=== PATIENT | male | born 1955 | race Caucasian/White ===

== ENCOUNTER 2017-07-21 11:54 | Observation (INO) ==
[2017-07-21] MEDS ORDERED: Naloxone 0.4 MG/ML INJ IVP PRN (15:13)
--- NOTE | 2017-07-21 15:27 | Internal Med History&Physical ---
Date of Encounter: 07/21/17 Time of Encounter: 15:13 Internal Medicine - H&P: HPI Admitted From: Hospital to Hospital Transfer Plans for Post Hospital Care: Home History of present illness: Mr. Gaines is a 61 year old male with history of diabetes mellitus, hypertension, COPD, hyperlipidemia, SANTOS on CPAP, fatty liver, remote a smoker one pack per day 30 years quit in 1994 was transferred to a [facility] from [facility] for cardiac evaluation and cardia consultation. Patient had almost continuous palpitation for last 3-4 days on exertion and on even while sitting and resting in the recliner. The only time palpitation was not felt by the patient when he is lying down sleeping and using his BiPAP. Palpitation associated with mild shortness of breath and some chest discomfort. He had same episode last year and got a stress test done with negative findings. He was brought to [facility] ER today where initial troponin negative and no acute ST-T wave finding in the EKG but had transient run of A. fib on telemetry. Patient denies fever, chills, nausea, vomiting, chest pain, shortness of breath , headache, dizziness, abdominal pain, urinary or bowel complaint at this time. Past Med Surg Social Fam HX - Past Medical History Medical history: asthma, COPD, diabetes, GERD, hyperlipidemia, hypertension, other Psychiatric history: no psych history - Past Surgical History Surgical History: non-contributory - Social History Smoking Status: Never smoker Smokeless Tobacco Status: No Alcohol use: none Drug use: none Internal Medicine - H&P: Meds Aspirin [Adult Low Dose Aspirin EC] 81 mg PO DAILY 06/04/15 [History] Lisinopril [Zestril] 40 mg PO DAILY 06/04/15 [History] Magnesium Oxide [Magnesium] 400 mg PO DAILY 06/04/15 [History] Metoprolol [Lopressor] 25 mg PO DAILY 06/04/15 [History] Montelukast [Singulair] 10 mg PO DAILY 06/04/15 [History] [place]-3/Dha/Epa/Fish Oil [Fish Oil Dr 500 mg Softgel] 1,000 mg PO DAILY [History] Omeprazole [PriLOSEC] 40 mg PO DAILY 06/04/15 [History] Potassium Chloride [K-Tab ER] 10 meq PO BID 06/04/15 [History] Simethicone [Gas-X] 80 mg PO TID 06/04/15 [History] Tizanidine HCl [Zanaflex] 2 mg PO TID PRN 06/04/15 [History] Zolpidem [Ambien] 10 mg PO HS 06/04/15 [History] metFORMIN [Glucophage] 500 mg PO BIDWM 06/04/15 [History] Albuterol Sulfate [Ventolin Hfa] 2 puff IH Q6H PRN 05/09/16 [History] Bupropion HCl [Wellbutrin Xl] 300 mg PO DAILY 05/09/16 [History] Butalbital/Aspirin/Caffeine [Fiorinal 50-325-40 mg Capsule] 1 each PO Q6H PRN [History] Cholecalciferol (Vitamin D3) [Vitamin D3] 2,000 unit PO DAILY 09/07/16 [History] Gemfibrozil [Lopid] 600 mg PO BIDWM 09/07/16 [History] Mometasone/Formoterol [Dulera 200 Mcg/5 Mcg Inhaler] 2 puff IH BID 09/07/16 [ History] Oxygen 1 each .ROUTE AD 09/07/16 [History] Albuterol Sulfate [Albuterol Inhaler] 2 puff IH Q6H #1 puff 11/20/16 [Rx] hydroCHLOROthiazide [Hydrochlorothiazide] 25 mg PO DAILY 11/20/16 [History] Lactobacillus [Culturelle] 1 each PO BID #10 cap.sprink 11/22/16 [Rx] Meloxicam [Mobic] 15 mg PO DAILY PRN #0 11/22/16 [Rx] Albuterol Sulfate [Albuterol Inhaler] 2 puff IH QID #1 inhaler 03/26/17 [Rx] Benzonatate [Tessalon] 200 mg PO TID PRN #20 capsule 03/26/17 [Rx] Albuterol Sulfate [Albuterol Inhaler] 2 puff IH Q4H PRN #1 puff 03/31/17 [Rx] predniSONE [PredniSONE] 60 mg PO DAILY #5 tablet 03/31/17 [Rx] OxyCODONE/APAP 10/325 [Percocet 10/325 MG] 1 each PO Q6HR PRN 07/21/17 [History] 3 Allergy/AdvReac Type Severity Reaction Status Date / Time No Known Allergies Allergy Verified 03/26/17 14:38 All Systems PM: A 10-system review of systems was performed and is negative for pertinent findings except as documented above in the HPI. - Constitutional Exam: General appearance: No acute distress, A&O X 3, morbidly obese. Family at bedside Head exam: Atraumatic Eye exam: EOMI, PERRLA ENT exam: Moist oral mucosa. A small oral cavity Neck nontender, supple Respiratory exam: Clear to auscultation bilaterally Cardiovascular exam: Regular rate and rhythm, no systolic murmur Abdominal exam: Soft, nontender, nondistended, positive bowel sounds Extremities exam: No calf tenderness, no pedal edema Present: Skin-no rash, warm, dry, intact Neurological exam: Alert, awake, oriented 3, CN II-XII intact, no focal deficits. No facial droop. Normal speech. - Assessment and plan (1) Palpitation Current Visit: Yes Status: Acute Assessment and plan: Active. Persistent for 3-4 days. No active chest pain. Patient also had associated shortness of breath that could be more likely due to palpitation but will also order BNP and d-dimer. Patient need cardiac workup therefore serial cardiac enzyme, echocardiogram and consulted cardiology talk to Dr. Gonzales. Telemetry, pulse oximetry. TSH. Nonalcoholic, remote smoker. (2) Diabetes mellitus Current Visit: Yes Status: Acute Assessment and plan: Accu-Chek, sliding scale insulin, diabetic diet. Qualifiers: Diabetes mellitus type: type 2 Diabetes mellitus skilled nursing insulin use: without credentials specialist use Diabetes mellitus complication status: without complication Qualified Code(s): E11.9 - Type 2 diabetes mellitus without complications (3) Hypertension Current Visit: Yes Status: Acute Assessment and plan: Monitor, continue home medicine. Qualifiers: Hypertension type: essential hypertension Qualified Code(s): I10 - Essential (primary) hypertension (4) SANTOS on CPAP Current Visit: Yes Status: Acute Assessment and plan: Continue home CPAP (5) DVT prophylaxis Current Visit: Yes Status: Acute Assessment and plan: SCDs - Time Spent With Patient Total time spent is greater than 50% in coordination of care (as documented) at patient's floor/unit and/or counseling patient: 25 - 35 minutes
[2017-07-21] MEDS ORDERED: Dextrose Gel 15 GM/37.5 ML TUBE PO PRN ×2 (15:34)
[2017-07-21] MEDS ORDERED: D5% in Water 1,000 ML IVC PRN (15:34)
[2017-07-21] MEDS ORDERED: *HR* Dextrose 50 % in Water (Syg) 50 ML SYRINGE IVP PRN (15:34)
[2017-07-21 15:42] LABS: Basophils % 0.6 %; Eosinophils # 0.1 K/mcL (0.0-0.6); Eosinophils % 1.8 %; Hematocrit 41.2 % (37.5-50.1); Hemoglobin 14.4 g/dL (12.9-16.9); Immature Granulocytes % 0.4 % (0-4); Lymphocytes # 2.2 K/mcL (0.6-4.6); Lymphocytes % 30.6 %; Mean Corpuscular Hemoglobin 31.3 pg (28.0-33.3); Mean Corpuscular Volume 89.6 fL (83.0-100.0); Mean Platelet Volume 10.4 fL (9.4-12.4); Monocytes # 0.7 K/mcL (0.0-1.3); Monocytes % 9.2 %; Neutrophils # 4.1 K/mcL (1.6-8.9); Platelet Count 300 K/mcL (140-400); Red Cell Distribution Width 11.9 % (11.5-14.5); Segmented Neutrophils % 57.4 %
[2017-07-21 15:48] LABS: INR 1.1; Prothrombin Time 11.6 Seconds (9.4-12.1)
[2017-07-21 15:51] LABS: Activated Partial Thrombo Time 29.9 Seconds (26.0-36.0)
[2017-07-21 16:02] LABS: Alanine Aminotransferase 32 Units/L (7-52); Albumin 4.2 g/dL (3.5-5.7); Albumin/Globulin Ratio 1.6 (1.1-2.2); Alkaline Phosphatase 61 Units/L (34-104); Aspartate Amino Transferase 21 Units/L (13-39); BUN/Creatinine Ratio 18 (6-26); Bilirubin,Total 0.5 mg/dL (0.3-1.0); Blood Urea Nitrogen 14 mg/dL (6-20); Calcium 9.6 mg/dL (8.6-10.3); Carbon Dioxide 33 mEq/L (23-29); Chloride 102 mEq/L (98-107); Estimated Average Glucose 146 mg/dl; Globulin 2.6 g/dL (2.4-3.5); Glucose 121 mg/dL (70-105); Hemoglobin A1C 6.7 %; Magnesium 1.9 mg/dL (1.6-2.6); Osmolality,Calculated 292 (280-300); Potassium 3.7 mEq/L (3.5-5.1); Sodium 140 mEq/L (136-145); Total Protein 6.8 g/dL (6.4-8.9); eGFR For African Americans > 60 (> 60); eGFR For Non-African Americans > 60 (> 60)
[2017-07-21 16:04] LABS: Troponin I < 0.03 ng/mL (< 0.04)
--- NOTE | 2017-07-21 16:13 | Cardiology Consult Note ---
<Yoly Villarreal - Last Filed: 07/21/17 16:51> Date of Encounter: 07/21/17 Time of Encounter: 16:11 Assessment and Plan (1) Palpitation Current Visit: Yes Status: Acute Patient states symptoms worsen with exertion. During exertion patient's HR stable in 80s, no tachycardia seen. Patient did become symptomatic during exertion stating his palpitations were worsening but denied chest pain. Orthostatics WNL. We will plan to perform a nuclear stress test and reevaluate the patient. Will also perform overnight O2 monitoring. Discussion w patient/family: The assessment and plan as outlined above was discussed with the patient and/or family members who expressed understanding and agreement. All questions were answered. Thank you for involving us in the care of your patient. Please call with any questions. History of Present Illness Consult date: 07/21/17 Consult reason: Palpitations History of present illness: Mr. Gaines is a 61 year old male with significant PMHx of diabetes and sleep apnea presented to an outside ED for palpitations for the past 3 days. Patient denies any chest pain or pressure. Denies any dizziness or syncope. Patient states this occurred many years ago and had a cardiology work up with benign results. Patient states palpitations spontaneously resolved at that time. Patient denies being on any anticoagulation. Denies any history of NC, stents, or CABG. Patient does state he notices the palpitations more when he is exerting himself. Past Med Surg Social Fam HX - Past Medical History Attestation: Yes The following information was validated with the patient. Medical history: asthma, COPD, diabetes, GERD, hyperlipidemia, hypertension, other Psychiatric history: no psych history - Past Surgical History Surgical History: non-contributory - Social History Smoking Status: Never smoker Smokeless Tobacco Status: No Alcohol use: none Drug use: none Medications and Allergies Aspirin [Adult Low Dose Aspirin EC] 81 mg PO DAILY 06/04/15 [History] Lisinopril [Zestril] 40 mg PO DAILY 06/04/15 [History] Metoprolol [Lopressor] 25 mg PO DAILY 06/04/15 [History] [place]-3/Dha/Epa/Fish Oil [Fish Oil Dr 500 mg Softgel] 1,000 mg PO DAILY [History] Omeprazole [PriLOSEC] 40 mg PO DAILY 06/04/15 [History] Potassium Chloride [K-Tab ER] 10 meq PO BID 06/04/15 [History] Tizanidine HCl [Zanaflex] 2 mg PO TID PRN 06/04/15 [History] Zolpidem [Ambien] 10 mg PO HS 06/04/15 [History] metFORMIN [Glucophage] 500 mg PO BIDWM 06/04/15 [History] Bupropion HCl [Wellbutrin Xl] 300 mg PO DAILY 05/09/16 [History] Cholecalciferol (Vitamin D3) [Vitamin D3] 2,000 unit PO DAILY 09/07/16 [History] Gemfibrozil [Lopid] 600 mg PO BIDWM 09/07/16 [History] Mometasone/Formoterol [Dulera 200 Mcg/5 Mcg Inhaler] 2 puff IH BID 09/07/16 [ History] Oxygen 1 each .ROUTE AD 09/07/16 [History] hydroCHLOROthiazide [Hydrochlorothiazide] 25 mg PO DAILY 11/20/16 [History] Albuterol Sulfate [Albuterol Inhaler] 2 puff IH Q4H PRN #1 puff 03/31/17 [Rx] Ascorbic Acid [Vitamin C] 500 mg PO DAILY 07/21/17 [History] 3 Allergy/AdvReac Type Severity Reaction Status Date / Time No Known Allergies Allergy Verified 07/21/17 22:14 All Systems Review: The remainder of the systems were reviewed and are negative - Constitutional Constitutional: no fever(s), no headache(s) - EENT Eyes: no blurred vision, no loss of vision - Cardiovascular Cardiovascular: as per HPI - Respiratory Respiratory: no cough, no hemoptysis - Gastrointestinal Gastrointestinal: no abdominal pain, no diarrhea, no nausea - Integumentary Integumentary: no rash - Neurological Neurological: no abnormal speech, no focal weakness Physical Examination Vital Signs, Last 4 Hours Temp Pulse Resp BP Pulse Ox 07/21/17 15:13 97.7 F 73 15 124/78 92 General: Conversant, No Apparent Distress HEENT: Atraumatic, Normocephaly, Mucus Membranes Moist Neck: No JVD, Normal carotid pulses Cardiac: Normal S1 and S2, No Murmur, Other (irreguarly irregular rhythm 88BPM) Lungs: Normal Breath Sounds, No Wheeze, Rales, Rhonchi Neuro: Alert and responsive, No focal deficits noted Abdomen: Soft, Non-Tender Skin: No rashes noted on visualized skin Musculoskeletal: No Chest Wall Tenderness Extremities: No Clubbing, No Cyanosis, No Edema, Normal Pulses Results 07/21/17 15:29 07/21/17 15:29 Lab Results 07/21/17 07/21/17 07/21/17 15:29 15:29 15:29 WBC 7.2 Hgb 14.4 Hct 41.2 Plt Count 300 INR 1.1 APTT 29.9 D-Dimer Sodium 140 Potassium 3.7 Chloride 102 Carbon Dioxide 33 H BUN 14 Creatinine 0.79 Glucose 121 H Calcium 9.6 Magnesium 1.9 Total Bilirubin 0.5 AST 21 ALT 32 Alkaline Phosphatase 61 Troponin I B-Natriuretic Peptide 07/21/17 07/21/17 07/21/17 15:29 15:29 15:29 WBC Hgb Hct Plt Count INR APTT D-Dimer 272 Sodium Potassium Chloride Carbon Dioxide BUN Creatinine Glucose Calcium Magnesium Total Bilirubin AST ALT Alkaline Phosphatase Troponin I < 0.03 B-Natriuretic Peptide 23 Consult Discharge Plan - Plan Referrals: Delmi Carter, TAILMAN [Primary Care Provider] - <Alex Genao - Last Filed: 07/22/17 21:59> Date of Encounter: 07/21/17 Time of Encounter: 20:00 - Attending Attestation I examined this patient and my medical decision-making was reviewed with the Resident Physician. I agree with the documented findings, disposition and treatment plan as described except to the extent set forth below. CC: Palpitations Pt complains of increased heat rate,feels his heart starts skipping and racing spontaneously lasts seconds to minutes. Pt reports no chest pain, pressure or shortness of breath with these events. He notes these events are not associated with exercise or emotional upset. PMHx: reviewed. PE: pt seen and examined, agree with physical findings as documented. IMP/PLAN: 1. Palpitations: unclear etiology, unable to provoke palpitations, will order stress imaging to rule out ischemic substrate. Assessment and Plan Discussion w patient/family: The assessment and plan as outlined above was discussed with the patient and/or family members who expressed understanding and agreement. All questions were answered. Thank you for involving us in the care of your patient. Please call with any questions. History of Present Illness History of present illness: Mr. Gaines is a 61 year old male All Systems Review: The remainder of the systems were reviewed and are negative Physical Examination Vital Signs, Last 4 Hours Temp Pulse Resp BP Pulse Ox 07/22/17 19:30 98.9 F 81 17 146/78 96 Results 07/21/17 15:29 07/21/17 15:29 Lab Results 07/22/17 05:46 Troponin I < 0.03
[2017-07-21 16:19] LABS: Thyroid Stimulating Hormone 0.841 mcIU/mL (0.340-5.600)
[2017-07-21] MEDS: Insulin LISPRO 300 UNITS/3 ML VIAL SQ SCH (17:59)
[2017-07-21] MEDS ORDERED: tiZANidine 4 MG TABLET PO PRN (21:02)
[2017-07-21] MEDS ORDERED: NON-FORMULARY MEDICATION 1 EACH EACH (Oxygen [Oxygen] 1 EACH) SCH (21:15)
[2017-07-22] MEDS: Insulin LISPRO 300 UNITS/3 ML VIAL SQ SCH ×4 (01:20→18:09)
[2017-07-22] MEDS ORDERED: Regadenoson 0.4 MG/5 ML SYRINGE IVP ONE (05:18)
[2017-07-22 06:23] LABS: Chol/HDL Ratio 7.2 (0-4.9); Cholesterol 181 mg/dL (< 200); HDL Cholesterol 25 mg/dL (40-59); Triglycerides 453 mg/dL (< 150)
[2017-07-22] MEDS: Lisinopril 20 MG TABLET PO SCH (09:27)
[2017-07-22] MEDS: BuPROPion XL (24 HR) 150 MG TABLET PO SCH (09:28)
[2017-07-22] MEDS: Ascorbic Acid 500 MG TABLET PO SCH (09:28)
[2017-07-22] MEDS: FISH OIL 500 MG PO SCH (09:28)
[2017-07-22] MEDS: Cholecalciferol (D-3) 1,000 UNIT TABLET PO SCH (09:28)
[2017-07-22] MEDS: Aspirin Enteric Coated 81 MG Tablet PO SCH (09:28)
[2017-07-22] MEDS: hydroCHLOROthiazide 25 MG TABLET PO SCH (09:29)
[2017-07-22] MEDS: Budesonide/Formoterol 160/4.5 MDI IH SCH ×2 (10:34→20:03)
[2017-07-22] MEDS ORDERED: Ipratropium/Albuterol Neb 3 ML ONE (15:48)
[2017-07-22] MEDS: Ipratropium/Albuterol Neb 3 ML IH SCH ×3 (16:06→23:50)
--- NOTE | 2017-07-22 17:24 | Internal Med Progress Note ---
Date of Encounter: 07/22/17 Time of Encounter: 10:30 - Assessment and plan (1) Palpitation Current Visit: Yes Status: Acute Assessment and plan: Palpitations remain, improved. Less frequent than on admission. Pt reports associated SOB and MORFIN today. Denies chest pain. ashley has completed day 1 today stress Echocardiogram shows an LVEF of 60-65%, mild LV DD, no significant valvular dysfunction. Troponins negative. TSH within normal limits. EKG on arrival showed sinus rhythm with multiple PVCs. Continue telemetry Oxygen Date 2 stress test tomorrow (2) Diabetes mellitus Current Visit: Yes Status: Acute Assessment and plan: continue Accu-Chek before meals at bedtime, sliding scale insulin, diabetic diet. A1c 6.7%. Continue home medications after discharge. Qualifiers: Diabetes mellitus type: type 2 Diabetes mellitus skilled nursing insulin use: without skilled nursing use Diabetes mellitus complication status: without complication Qualified Code(s): E11.9 - Type 2 diabetes mellitus without complications (3) Hypertension Current Visit: Yes Status: Acute Assessment and plan: Chronic. Stable. Continue home medications. Qualifiers: Hypertension type: essential hypertension Qualified Code(s): I10 - Essential (primary) hypertension (4) SANTOS on CPAP Current Visit: Yes Status: Acute Assessment and plan: Continue home CPAP. Stable. (5) DVT prophylaxis Current Visit: Yes Status: Acute Assessment and plan: SCDs are ordered. Encourage ambulation. - Time Spent With Patient Total time spent is greater than 50% in coordination of care (as documented) at patient's floor/unit and/or counseling patient: less than 15 minutes - Subjective Interval history: Pt was seen and assessed at bedside at 1030. He is alert and awake, appropriate. He states that he began having chest pain/discomfort the day he switched from sugar to Splenda. He states that he is still having palpitations, they are better and less frequent, but still remains. He states that he becomes SOB with palpitations and starting today is having MORFIN. Denies headache, n/v, diaphoresis, abdominal pain, fever, chills, or peripheral edema. - Constitutional Vitals: Temp Pulse Resp BP Pulse Ox 99 F 71 20 132/74 95 07/22/17 15:48 07/22/17 15:48 07/22/17 16:06 07/22/17 15:48 07/22/17 16:06 General appearance: Present: cooperative, A&O X 3, morbidly obese, pleasant, no acute distress, answers questions appropriately - Head Head exam: Present: atraumatic, normal inspection, normocephalic - Eye Eye exam: Present: normal appearance, conjuntiva pink, sclera anicteric - Neck Neck exam general surgery: Present: normal inspection, supple, trachea midline. Absent: lymphadenopathy, tenderness - Respiratory Respiratory exam: Present: CTAB. Absent: accessory muscle use, rales, respiratory distress, rhonchi, wheezes - Cardiovascular Cardiovascular exam: Present: RRR, +S1, +S2. Absent: bradycardia, diastolic murmur, gallop, rubs, systolic murmur, tachycardia - GI/Abdominal GI/Abdominal exam: Present: normal bowel sounds, soft, no peritoneal signs. Absent: distended, hepatomegaly, tenderness - Extremities Exam Extremities exam: Present: normal capillary refill, normal inspection, warm, radial pulses palpable and symmetrical. Absent: calf tenderness, cyanotic, pedal edema, tenderness - Neurological Exam Neurological exam: Present: alert, oriented X3, no focal deficits. Absent: facial droop, speech deficit - Skin Skin exam: Present: dry, intact, normal color, warm. Absent: rash Internal Medicine: Result - Labs CBC & Chem 7: 07/21/17 15:29 07/21/17 15:29 Labs: Cardiac Enzymes 07/21/17 07/22/17 Range/Units 21:05 05:46 Troponin I < 0.03 < 0.03 (< 0.04) ng/mL - ABG Interpretation ABG results: PT/INR, D-dimer PT 11.6 Seconds (9.4-12.1) 07/21/17 15:29 D-Dimer 272 ng/mLFEU (0-500) 07/21/17 15:29 - Impressions Impressions Echocardiogram 07/22/17 15:17 Impressions: LVEF 60-65%. Normal LV chamber size, wall thickness and function. Mild left ventricular diastolic dysfunction. Mildly dilated right ventricle with normal function. Mild pulmonary hypertension. No significant valvular dysfunction. Left Ventricular Wall Motion: Rest Echo Findings All wall segments showed normal motion. Findings: ECG Findings * Normal sinus rhythm. Left Ventricle * LVEF 60-65%. * Normal LV chamber size, wall thickness and function. * Mild left ventricular diastolic dysfunction. Right Ventricle * Mildly dilated right ventricle with normal function. Left Atrium * Moderately dilated left atrium. Right Atrium * Mildly dilated right atrium. Interatrial Septum * Interatrial septum not well evaluated. Aortic Valve * Mildly sclerotic aortic valve leaflets. * No aortic stenosis. * No aortic regurgitation. Mitral Valve * Normal mitral valve structure and function. * No mitral regurgitation. * No mitral stenosis. Tricuspid Valve * Normal tricuspid valve structure and function. * Trace tricuspid regurgitation. * Mild pulmonary hypertension. Pulmonic Valve * Normal pulmonic valve structure and function. * No pulmonic regurgitation. Aorta * Normally sized aortic root. Pericardium * The pericardium appears normal. IVC * The IVC is not well evaluated. Pulmonary Artery * Normal visualized portions of the main pulmonary artery. - VTE Documentation of Mechanical Device: Intermittent pneumatic compression device Consult Discharge Plan - Plan Referrals: Delmi Carter, [employer] [Primary Care Provider] -
[2017-07-23] MEDS: Insulin LISPRO 300 UNITS/3 ML VIAL SQ SCH ×4 (00:58→17:00)
[2017-07-23] MEDS: Ipratropium/Albuterol Neb 3 ML IH SCH ×6 (04:25→23:47)
[2017-07-23 05:32] LABS: Basophils % 0.6 %; Eosinophils # 0.1 K/mcL (0.0-0.6); Eosinophils % 1.9 %; Hematocrit 41.7 % (37.5-50.1); Hemoglobin 14.1 g/dL (12.9-16.9); Immature Granulocytes % 0.5 % (0-4); Lymphocytes % 31.5 %; Mean Corpuscular HGB Conc 33.8 g/dL (31.6-35.5); Mean Corpuscular Hemoglobin 30.9 pg (28.0-33.3); Mean Corpuscular Volume 91.2 fL (83.0-100.0); Mean Platelet Volume 10.5 fL (9.4-12.4); Monocytes # 0.6 K/mcL (0.0-1.3); Monocytes % 9.8 %; Neutrophils # 3.5 K/mcL (1.6-8.9); Platelet Count 289 K/mcL (140-400); Red Blood Count 4.57 M/mcL (4.19-5.50); Red Cell Distribution Width 12.1 % (11.5-14.5); Segmented Neutrophils % 55.7 %
[2017-07-23 05:53] LABS: BUN/Creatinine Ratio 22 (6-26); Blood Urea Nitrogen 16 mg/dL (6-20); Calcium 9.3 mg/dL (8.6-10.3); Carbon Dioxide 28 mEq/L (23-29); Chloride 104 mEq/L (98-107); Glucose 153 mg/dL (70-105); Osmolality,Calculated 292 (280-300); Potassium 3.6 mEq/L (3.5-5.1); Sodium 139 mEq/L (136-145); eGFR For African Americans > 60 (> 60); eGFR For Non-African Americans > 60 (> 60)
--- NOTE | 2017-07-23 08:49 | Cardiology Progress Note ---
<Yoly Villarreal - Last Filed: 07/23/17 11:35> Date of Encounter: 07/23/17 Time of Encounter: 08:49 Assessment and Plan (1) Palpitation Status: Acute Two day stress test pending. If unchanged we will sign off on the patient and plan for further outpatient management. Discussion w patient/family: The assessment and plan as outlined above was discussed with the patient and/or family members who expressed understanding and agreement. All questions were answered. Thank you for involving us in the care of your patient. Please call with any questions. Subjective Interval history: Patient states he is doing better today. Still feeling palpitations on and off but significantly less than when he was first admitted. Denies chest pain or pressure. Objective Vital Signs, Last 4 Hours Temp Pulse Resp BP Pulse Ox 07/23/17 07:43 98.0 F 74 19 161/78 93 General: Conversant, No Apparent Distress HEENT: Atraumatic, Normocephaly, Mucus Membranes Moist Neck: No JVD, Normal carotid pulses Cardiac: Reg Rate and Rhythm, Normal S1 and S2, No Murmur Lungs: Normal Breath Sounds, No Wheeze, Rales, Rhonchi Neuro: Alert and responsive, No focal deficits noted Abdomen: Soft, Non-Tender Skin: No rashes noted on visualized skin Musculoskeletal: No Chest Wall Tenderness Extremities: No Clubbing, No Cyanosis, No Edema, Normal Pulses Results 07/23/17 04:38 07/23/17 04:38 Lab Results 07/23/17 07/23/17 04:38 04:38 WBC 6.4 Hgb 14.1 Hct 41.7 Plt Count 289 Sodium 139 Potassium 3.6 Chloride 104 Carbon Dioxide 28 BUN 16 Creatinine 0.74 Glucose 153 H Calcium 9.3 - VTE Documentation of Mechanical Device: Intermittent pneumatic compression device Consult Discharge Plan - Plan Instructions: Metoprolol (By mouth), Chest Pain (DC), Heart Healthy Diet (DC), Premature Atrial Contractions (GEN), Premature Atrial Contractions, Tourist Information Officer (GEN) Additional Instructions: Please return to the ER if your symptoms return or worsen, of if you have any other problems or concerns. See your PCP this week for a recheck. Take your medications as directed. Your new medication is at your pharmacy. Try to eat a heart healthy, low calorie and carbohydrate diet, increase your exercise. Referrals: Delmi Carter CNP [Primary Care Provider] - 07/30/17 4:00 pm Prescriptions: Metoprolol XL (24 HR) Succ [Toprol Xl] 25 mg PO DAILY #30 tab.er.24h <GenaoAlex - Last Filed: 07/24/17 16:56> Date of Encounter: 07/23/17 Time of Encounter: 17:00 Assessment and Plan Discussion w patient/family: The assessment and plan as outlined above was discussed with the patient and/or family members who expressed understanding and agreement. All questions were answered. Thank you for involving us in the care of your patient. Please call with any questions. Results 07/24/17 03:51 07/24/17 03:51 Lab Results 07/24/17 07/24/17 03:51 03:51 WBC 6.7 Hgb 13.9 Hct 41.7 Plt Count 302 Sodium 141 Potassium 4.2 Chloride 104 Carbon Dioxide 29 BUN 14 Creatinine 0.92 Glucose 123 H Calcium 9.6 Attestation: My signature below is to certify that this patient is under my care and that I, or nurse practitioner, or a physician's clothing sales assistant working with me, has a face-to -face encounter with this patient. I examined this patient and my medical decision-making was reviewed with the Resident Physician. I agree with the documented findings, disposition and treatment plan as described except to the extent set forth below Chest pain has resolved, stress imaging negative for previous [place] or ischemia, at low cardiovascular risk for hospitral discharge. .
[2017-07-23] MEDS: Lisinopril 20 MG TABLET PO SCH (09:16)
[2017-07-23] MEDS: hydroCHLOROthiazide 25 MG TABLET PO SCH (09:16)
[2017-07-23] MEDS: Cholecalciferol (D-3) 1,000 UNIT TABLET PO SCH (09:16)
[2017-07-23] MEDS: BuPROPion XL (24 HR) 150 MG TABLET PO SCH (09:16)
[2017-07-23] MEDS: Aspirin Enteric Coated 81 MG Tablet PO SCH (09:16)
[2017-07-23] MEDS: Ascorbic Acid 500 MG TABLET PO SCH (09:16)
[2017-07-23] MEDS: FISH OIL 500 MG PO SCH (09:17)
[2017-07-23] MEDS: Budesonide/Formoterol 160/4.5 MDI IH SCH ×2 (11:21→21:38)
[2017-07-23] MEDS ORDERED: Acetaminophen 325 MG TABLET PO PRN (16:24)
--- NOTE | 2017-07-23 18:58 | Internal Med Progress Note ---
Date of Encounter: 07/23/17 Time of Encounter: 10:30 - Assessment and plan (1) Palpitation Current Visit: Yes Status: Acute Assessment and plan: Palpitations remain, improved. Repeat EKG unchanged from prior. PACs, pt reports feeling SOB with PACs. Pt doest not have much room to increase BB, will discuss with cardiology tomorrow. Denies chest pain. Stress test negative. Echocardiogram shows an LVEF of 60-65%, mild LV DD, no significant valvular dysfunction. Troponins negative. TSH within normal limits. EKG on arrival showed sinus rhythm with multiple PVCs. Continue telemetry Oxygen (2) Diabetes mellitus Current Visit: Yes Status: Acute Assessment and plan: continue Accu-Chek achs, sliding scale insulin, diabetic diet. Continue home medications after discharge. Qualifiers: Diabetes mellitus type: type 2 Diabetes mellitus custodial insulin use: without custodial use Diabetes mellitus complication status: without complication Qualified Code(s): E11.9 - Type 2 diabetes mellitus without complications (3) Hypertension Current Visit: Yes Status: Chronic Assessment and plan: Chronic. Stable. Well controlled. Continue home medications. Qualifiers: Hypertension type: essential hypertension Qualified Code(s): I10 - Essential (primary) hypertension (4) SANTOS on CPAP Current Visit: Yes Status: Chronic Assessment and plan: Continue CPAP. Stable. (5) DVT prophylaxis Current Visit: Yes Status: Acute Assessment and plan: SCDs are ordered. continue to encourage ambulation. - Time Spent With Patient Total time spent is greater than 50% in coordination of care (as documented) at patient's floor/unit and/or counseling patient: less than 15 minutes - Subjective Interval history: Pt was seen and assessed at bedside at 1030. He is alert and awake, appropriate.He states that he is still having palpitations, they are better and less frequent, but still remains. Repeat EKG unchanged from prior with PACs. Denies headache, n/v, diaphoresis, abdominal pain, fever, chills, or peripheral edema. Today he reports that he is having difficulty at home with basic tasks such as cooking and cleaning and spoke with the social media content manager about home health after discharge. - Constitutional Vitals: Temp Pulse Resp BP Pulse Ox 98.2 F 68 19 108/70 97 07/23/17 15:08 07/23/17 15:08 07/23/17 15:08 07/23/17 15:08 07/23/17 15:08 General appearance: Present: cooperative, A&O X 3, morbidly obese, pleasant, no acute distress, answers questions appropriately - Head Head exam: Present: atraumatic, normal inspection, normocephalic - Eye Eye exam: Present: normal appearance, conjuntiva pink, sclera anicteric - Neck Neck exam general surgery: Present: supple, trachea midline. Absent: lymphadenopathy - Respiratory Respiratory exam: Present: decreased breath sounds, CTAB. Absent: accessory muscle use, chest wall tenderness, rales, rhonchi, wheezes - Cardiovascular Cardiovascular exam: Present: RRR, +S1, +S2. Absent: diastolic murmur, gallop, rubs, systolic murmur - GI/Abdominal GI/Abdominal exam: Present: normal bowel sounds, soft. Absent: distended, hepatomegaly, tenderness - Extremities Exam Extremities exam: Present: normal capillary refill, warm, radial pulses palpable and symmetrical. Absent: calf tenderness, cyanotic, pedal edema - Neurological Exam Neurological exam: Present: alert, oriented X3, no focal deficits. Absent: facial droop, speech deficit - Skin Skin exam: Present: dry, intact, normal color, warm. Absent: rash Internal Medicine: Result - Labs CBC & Chem 7: 07/23/17 04:38 07/23/17 04:38 Labs: Short CBC 07/23/17 Range/Units 04:38 WBC 6.4 (4.3-11.1) K/mcL Hgb 14.1 (12.9-16.9) g/dL Hct 41.7 (37.5-50.1) % Plt Count 289 (140-400) K/mcL Neutrophils # 3.5 (1.6-8.9) K/mcL BMP 07/23/17 04:38 Sodium 139 Potassium 3.6 Chloride 104 Carbon Dioxide 28 BUN 16 Creatinine 0.74 Glucose 153 H Calcium 9.3 - ABG Interpretation ABG results: PT/INR, D-dimer PT 11.6 Seconds (9.4-12.1) 07/21/17 15:29 D-Dimer 272 ng/mLFEU (0-500) 07/21/17 15:29 - VTE Documentation of Mechanical Device: Intermittent pneumatic compression device Consult Discharge Plan - Plan Referrals: Delmi Carter, ANTWON [Primary Care Provider] -
[2017-07-24] MEDS ORDERED: *HR* LORazepam 2 MG/ML VIAL IVP ONE (00:07)
[2017-07-24] MEDS: Insulin LISPRO 300 UNITS/3 ML VIAL SQ SCH ×3 (00:34→13:02)
[2017-07-24] MEDS: Ipratropium/Albuterol Neb 3 ML IH SCH ×4 (04:00→14:03)
[2017-07-24 05:25] LABS: Basophils # 0.1 K/mcL (0.0-0.2); Basophils % 0.7 %; Eosinophils # 0.3 K/mcL (0.0-0.6); Eosinophils % 3.7 %; Hematocrit 41.7 % (37.5-50.1); Hemoglobin 13.9 g/dL (12.9-16.9); Immature Granulocytes % 0.4 % (0-4); Lymphocytes # 2.5 K/mcL (0.6-4.6); Lymphocytes % 37.5 %; Mean Corpuscular HGB Conc 33.3 g/dL (31.6-35.5); Mean Corpuscular Hemoglobin 30.8 pg (28.0-33.3); Mean Corpuscular Volume 92.3 fL (83.0-100.0); Mean Platelet Volume 10.7 fL (9.4-12.4); Monocytes # 0.7 K/mcL (0.0-1.3); Monocytes % 10.9 %; Neutrophils # 3.1 K/mcL (1.6-8.9); Platelet Count 302 K/mcL (140-400); Red Blood Count 4.52 M/mcL (4.19-5.50); Red Cell Distribution Width 12.3 % (11.5-14.5); Segmented Neutrophils % 46.8 %
[2017-07-24 05:37] LABS: BUN/Creatinine Ratio 15 (6-26); Blood Urea Nitrogen 14 mg/dL (6-20); Calcium 9.6 mg/dL (8.6-10.3); Carbon Dioxide 29 mEq/L (23-29); Chloride 104 mEq/L (98-107); Glucose 123 mg/dL (70-105); Osmolality,Calculated 294 (280-300); Potassium 4.2 mEq/L (3.5-5.1); Sodium 141 mEq/L (136-145); eGFR For African Americans > 60 (> 60); eGFR For Non-African Americans > 60 (> 60)
[2017-07-24] MEDS ORDERED: Metoprolol XL (24 HR) Succ 25 MG TAB.ER.24H PO SCH (09:00)
[2017-07-24] MEDS: Aspirin Enteric Coated 81 MG Tablet PO SCH (09:06)
[2017-07-24] MEDS: Cholecalciferol (D-3) 1,000 UNIT TABLET PO SCH (09:07)
[2017-07-24] MEDS: BuPROPion XL (24 HR) 150 MG TABLET PO SCH (09:07)
[2017-07-24] MEDS: Ascorbic Acid 500 MG TABLET PO SCH (09:07)
[2017-07-24] MEDS: Lisinopril 20 MG TABLET PO SCH (09:07)
[2017-07-24] MEDS: hydroCHLOROthiazide 25 MG TABLET PO SCH (09:07)
[2017-07-24] MEDS: FISH OIL 500 MG PO SCH (09:08)
[2017-07-24 11:28] VITALS: BP 151/82
[2017-07-24] MEDS: Budesonide/Formoterol 160/4.5 MDI IH SCH (11:31)
--- NOTE | 2017-07-24 12:44 | Discharge Summary ---
- NOTES TO OUTPATIENT PROVIDER Notes to Outpatient Provider: Pt was admitted for palpitations and chest pain. Stress negative. Pt was started on BB. Still having infrequent palpitations, no further treatment recommended at this time. PACs on EKG. Orders not resulted at time of discharge: Pending orders Date of Encounter: 07/24/17 Time of Encounter: 10:15 - Discharge Diagnosis (1) Palpitation Priority: Primary Status: Acute Assessment and Plan: Palpitations remain, are improved. Discussed with cardiology VP COMMUNICATION[employer], no further treatment recommended at this time. Continue BB. Denies chest pain. Stress test negative. Echocardiogram shows an LVEF of 60-65%, mild LV DD, no significant valvular dysfunction. Troponins negative. TSH within normal limits. EKG on arrival showed sinus rhythm with PACs Follow with PCP for refills and medication management, if necessary. (2) Diabetes mellitus Priority: Secondary Status: Acute Assessment and Plan: Continue home medications, accucheck regimen after discharge. A1c 6.7% Qualifiers: Diabetes mellitus type: type 2 Diabetes mellitus penitentiary insulin use: without terminal operations supervisor use Diabetes mellitus complication status: without complication Qualified Code(s): E11.9 - Type 2 diabetes mellitus without complications (3) Hypertension Priority: Secondary Status: Chronic Assessment and Plan: Chronic. Well controlled. Continue home medications. Qualifiers: Hypertension type: essential hypertension Qualified Code(s): I10 - Essential (primary) hypertension (4) SANTOS on CPAP Priority: Secondary Status: Chronic Assessment and Plan: Continue BiPap at home. (5) DVT prophylaxis Priority: Secondary Status: Acute Assessment and Plan: SCDs ordered. (6) Morbid obesity with BMI of 40.0-44.9, adult Priority: Secondary Status: Chronic Assessment and Plan: Chronic. Encourage lifestyle modifications. Hospital course: Mr. Gaines is a 61 year old male with PMH of pna, anemia, DM, HTN, SANTOS with CPAP, and morbid obesity. Pt was admitted for palpitations. Pt was placed on Toprol XL and palpitations improved. Discussed with cardiology VP COMMUNICATIONS who recommends no further treatment and follow up with PCP. Pt states that he is having difficulty with cleaning and cooking at home and home health referral has been made. Pt will be sent home with new rx for Toprol XL. Labs and vitals are stable and WNL. Pt is ready for discharge. Discharge discussed with: patient - Time Spent with Patient Total time spent providing and/or coordinating discharge services: Less than 30 minutes - Discharge Medications Prescriptions: Metoprolol XL (24 HR) Succ [Toprol Xl] 25 mg PO DAILY #30 tab.er.24h Home Medications: Aspirin [Adult Low Dose Aspirin EC] 81 mg PO DAILY 06/04/15 [History] Lisinopril [Zestril] 40 mg PO DAILY 06/04/15 [History] [facility]-3/Dha/Epa/Fish Oil [Fish Oil Dr 500 mg Softgel] 1,000 mg PO DAILY [History] Omeprazole [PriLOSEC] 40 mg PO DAILY 06/04/15 [History] Potassium Chloride [K-Tab ER] 10 meq PO BID 06/04/15 [History] Tizanidine HCl [Zanaflex] 2 mg PO TID PRN 06/04/15 [History] Zolpidem [Ambien] 10 mg PO HS 06/04/15 [History] metFORMIN [Glucophage] 500 mg PO BIDWM 06/04/15 [History] Bupropion HCl [Wellbutrin Xl] 300 mg PO DAILY 05/09/16 [History] Cholecalciferol (Vitamin D3) [Vitamin D3] 2,000 unit PO DAILY 09/07/16 [History] Gemfibrozil [Lopid] 600 mg PO BIDWM 09/07/16 [History] Mometasone/Formoterol [Dulera 200 Mcg/5 Mcg Inhaler] 2 puff IH BID 09/07/16 [ History] Oxygen 1 each .ROUTE AD 09/07/16 [History] hydroCHLOROthiazide [Hydrochlorothiazide] 25 mg PO DAILY 11/20/16 [History] Albuterol Sulfate [Albuterol Inhaler] 2 puff IH Q4H PRN #1 puff 03/31/17 [Rx] Ascorbic Acid [Vitamin C] 500 mg PO DAILY 07/21/17 [History] Metoprolol XL (24 HR) Succ [Toprol Xl] 25 mg PO DAILY #30 tab.er.24h 07/24/17 [ Rx] Allergies/Adverse Reactions: 3 Allergy/AdvReac Type Severity Reaction Status Date / Time No Known Allergies Allergy Verified 07/21/17 22:14 Date of admission: 07/21/17 13:07 Primary care physician: Delmi Carter CNP Consults: 07/21/17 15:19 Consult to Cardiology [CONS] Routine Comment: Consulting Provider: Cardiology Deandra Reason for Consult: Palpitation, arrhythmia Call Completed: Yes 07/23/17 08:38 Consult to Accounting Recruiter [CONS] Routine Reason for SW Consult: assist with med administration Discharging clinician: Tamela Wheat Anticipated date of discharge: 07/24/17 - Constitutional Vitals: Temp Pulse Resp BP Pulse Ox 97.8 F 60 16 151/82 98 07/24/17 11:27 07/24/17 11:27 07/24/17 11:33 07/24/17 11:27 07/24/17 11:33 General appearance: Present: cooperative, A&O X 3, morbidly obese, pleasant, no acute distress, answers questions appropriately - Head Head exam: Present: atraumatic, normal inspection, normocephalic - Eye Eye exam: Present: normal appearance, conjuntiva pink, sclera anicteric - Neck Neck exam general surgery: Present: supple, trachea midline. Absent: lymphadenopathy - Respiratory Respiratory exam: Present: CTAB. Absent: accessory muscle use, chest wall tenderness, rales, respiratory distress, rhonchi, wheezes - Cardiovascular Cardiovascular exam: Present: RRR, +S1, +S2. Absent: diastolic murmur, gallop, rubs, systolic murmur - GI/Abdominal GI/Abdominal exam: Present: normal bowel sounds, soft, no peritoneal signs. Absent: distended, hepatomegaly, tenderness - Extremities Exam Extremities exam: Present: normal capillary refill, normal inspection, warm, radial pulses palpable and symmetrical. Absent: calf tenderness, cyanotic, pedal edema, tenderness - Neurological Exam Neurological exam: Present: alert, oriented X3, no focal deficits. Absent: altered, facial droop, speech deficit - Skin Skin exam: Present: dry, intact, normal color, warm. Absent: rash - Patient Status Disposition: Home Health Service Condition: Good Functional capacity at discharge: uses cane/walker Overall status at discharge: patient is back to baseline - Discharge Instructions Instructions: Premature Atrial Contractions (GEN), Premature Atrial Contractions, Is Support Analyst (GEN) Follow Up With: Delmi Carter CNP [Primary Care Provider] - Additional Instructions: Please return to the ER if your symptoms return or worsen, of if you have any other problems or concerns. See your PCP this week for a recheck. Take your medications as directed. Your new medication is at your pharmacy. Try to eat a heart healthy, low calorie and carbohydrate diet, increase your exercise. - Diet and Activity Activity: increase activity as tolerated Diet: diabetic diet, low fat, low cholesterol, low salt diet - VTE Documentation of Mechanical Device: Intermittent pneumatic compression device
--- NOTE | 2017-07-26 16:33 | Electrocardiograph Report ---
[address] [place], [place] [address] Test Date: 2017-07-23 Pat Name: Jaun Gaines Department: 113 Room: 3B Gender: M Central Supply Supervisor: JEANNIE : 1955 Requested By: Tamela Wheat Order Number: [id number] Reading MD: Suzanne Gerard Measurements Intervals [place] Rate: 81 P: 50 [place]: 197 QRS: 21 QRSD: 106 T: 36 QT: 380 QTc: 417 Interpretive Statements SINUS RHYTHM WITH FREQUENT SUPRAVENTRICULAR PREMATURE COMPLEXES ABNORMAL RHYTHM ECG Electronically Signed On 07-26-2017 16:31:37 EDT by Suzanne Gerard
== END 2017-07-24 15:17 | disposition home health service (06) ==
LOC: 3BNU
PROVIDERS: ADMIT General Practice; ATTEND Pediatrics